=== PATIENT | female | born 1955 | race Caucasian/White ===

== ENCOUNTER 2017-01-27 04:38 | Inpatient (IN) | payer OTHER ==
[~2017-01-27] VITALS: Ht 170.2 cm; Wt 92.0 kg
[~2017-01-27 04:38] MED LIST: ASPIR 8181 M1 PO; ATENOLOL-CHLOR1 EAC1 PO; BUTALB-APAP-CA1 EACH PO; K-DUR20 MEQ PO; LISINOPRIL10 MG PO; MELOXICAM7.5 MG PO; PAXIL20 MG PO; RELPAX40 MG PO; SIMVASTATIN40 MG PO
[2017-01-27 06:12] LABS: CHLORIDE 100 mEq/L (99-109); POTASSIUM 2.8 mEq/L (3.7-5.4); SODIUM 138 mEq/L (136-147)
[2017-01-27 06:14] LABS: GLUCOSE 185 mg/dL (70-99)
[2017-01-27 06:15] LABS: ANION GAP 14 MEQ/L (2-14)
[2017-01-27 06:18] LABS: GFR ESTIMATE (CALCULATED) > 59 mL/min/
[2017-01-27 06:19] LABS: UREA NITROGEN (BUN) 20 mg/dL (9-23)
[2017-01-27 06:24] LABS: MCH 29.8 PG (29.0-34.0); MCHC 35.2 G/DL (30.0-36.0); MCV 84.6 FL (83-99); MEAN PLAT.VOLUME 9.1 uM^3 (9.5-12.4); PLATELET COUNT 247 K/uL (156-360); RBC DIS.WIDTH-CV 13.3 % (11.8-14.6); RBC DIS.WIDTH-SD 41.5 % (39-53); RED BLOOD COUNT 3.19 M/uL (3.80-5.20); WHITE BLOOD COUNT 11.2 K/uL (4.1-10.2)
[2017-01-27 06:26] LABS: TROP-I INTERPRETATION NEGATIVE; TROPONIN-I 0.03 ng/mL (0.0-0.30)
[2017-01-27 06:57] LABS: INTER. NORMALIZED RATIO 1.1; PROTHROMBIN TIME 12.2 SEC (10.2-12.9)
[2017-01-27 07:00] LABS: PTT 26.1 SEC (25-37)
[2017-01-27 11:16] LABS: HEMATOCRIT 23.4 % (36.0-46.0); MCV 85.1 FL (83-99)
[2017-01-27 11:53] LABS: TROP-I INTERPRETATION NEGATIVE; TROPONIN-I 0.15 ng/mL (0.0-0.30)
[2017-01-27 12:16] VITALS: BP 99/58
[2017-01-27 16:48] VITALS: BP 113/66
[2017-01-27 16:53] LABS: HEMATOCRIT 24.6 % (36.0-46.0); MCV 85.7 FL (83-99)
[2017-01-27 17:18] LABS: TROP-I INTERPRETATION NEGATIVE; TROPONIN-I 0.13 ng/mL (0.0-0.30)
[2017-01-27 20:07] VITALS: BP 145/80
[2017-01-27 21:13] LABS: ANION GAP 9 MEQ/L (2-14); CHLORIDE 105 MEQ/L (99-109); POTASSIUM 3.3 MEQ/L (3.7-5.4); SAMPLE HEMOLYSIS CHECK 0; SAMPLE ICTERIC CHECK 0; SAMPLE LIPEMIA CHECK 0; SODIUM 141 MEQ/L (136-147)
[2017-01-27 21:18] LABS: GFR ESTIMATE (CALCULATED) > 59 mL/min/; UREA NITROGEN (BUN) 14 mg/dL (9-23)
[2017-01-27 21:28] LABS: ADD MIUA? NO; BILIRUBIN NEGATIVE; BLOOD NEGATIVE; COLOR STRAW ((YELLOW)); GLUCOSE (STRIP) NEGATIVE; KETONES NEGATIVE; LEUKOCYTES NEGATIVE; NITRITE NEGATIVE; PROTEIN (STRIP) NEGATIVE; SPECIFIC GRAVITY 1.004 (1.000-1.030); UROBILINOGEN 0.2 MG/DL (0.2-1.0)
[2017-01-27 21:31] LABS: GLUCOSE 106 mg/dL (70-99)
[2017-01-27 23:35] LABS: HEMATOCRIT 21.5 % (36.0-46.0); MCV 85.3 FL (83-99)
[2017-01-27 23:46] VITALS: BP 119/61
[2017-01-28] VITALS (10 sets, daily range): BP systolic 106–142; BP diastolic 57–88
[2017-01-28 06:09] LABS: HEMATOCRIT 22.9 % (36.0-46.0); MCH 30.1 PG (29.0-34.0); MCHC 35.4 G/DL (30.0-36.0); MCV 85.1 FL (83-99); RBC DIS.WIDTH-CV 14.6 % (11.8-14.6); RBC DIS.WIDTH-SD 44.4 % (39-53); RED BLOOD COUNT 2.69 M/uL (3.80-5.20); WHITE BLOOD COUNT 7.1 K/uL (4.1-10.2)
[2017-01-28 06:20] LABS: ANION GAP 10 MEQ/L (2-14); CHLORIDE 106 MEQ/L (99-109); GFR ESTIMATE (CALCULATED) > 59 mL/min/; GLUCOSE 122 mg/dL (70-99); POTASSIUM 3.5 MEQ/L (3.7-5.4); SAMPLE HEMOLYSIS CHECK 0; SAMPLE ICTERIC CHECK 0; SAMPLE LIPEMIA CHECK 0; SODIUM 141 MEQ/L (136-147); UREA NITROGEN (BUN) 9 mg/dL (9-23)
[2017-01-28 06:55] LABS: MEAN PLAT.VOLUME 8.8 uM^3 (9.5-12.4); PLAT.SUFFICIENCY ADEQUATE
[2017-01-28 07:06] LABS: PLATELET COUNT 165 K/uL (156-360)
[2017-01-29 03:57] VITALS: BP 123/71
[2017-01-29 08:14] VITALS: BP 140/83
[2017-01-29] MEDS ORDERED: LIPITOR40 MG PO (08:36)
[2017-01-29] MEDS ORDERED: IMITREX100 MG PO (08:43)
[2017-01-29 09:24] LABS: HEMATOCRIT 24.4 % (36.0-46.0); MCH 29.6 PG (29.0-34.0); MCHC 34.8 G/DL (30.0-36.0); MEAN PLAT.VOLUME 8.7 uM^3 (9.5-12.4); PLATELET COUNT 178 K/uL (156-360); RBC DIS.WIDTH-CV 15.1 % (11.8-14.6); RED BLOOD COUNT 2.87 M/uL (3.80-5.20); WHITE BLOOD COUNT 7.6 K/uL (4.1-10.2)
[2017-01-29 09:51] LABS: ANION GAP 8 MEQ/L (2-14); CHLORIDE 103 MEQ/L (99-109); GFR ESTIMATE (CALCULATED) > 59 mL/min/; GLUCOSE 147 mg/dL (70-99); POTASSIUM 3.9 MEQ/L (3.7-5.4); SAMPLE HEMOLYSIS CHECK 0; SAMPLE ICTERIC CHECK 0; SAMPLE LIPEMIA CHECK 0; SODIUM 139 MEQ/L (136-147); UREA NITROGEN (BUN) 5 mg/dL (9-23)
[2017-01-29] MEDS ORDERED: ZOCOR40 MG PO (10:34)
[2017-01-29] MEDS ORDERED: VITAMIN D34000 UNIT PO (10:50)
[2017-01-29 11:41] VITALS: BP 103/58
[2017-01-29 15:45] VITALS: BP 115/59
[2017-01-29 19:55] VITALS: BP 139/68
[2017-01-29 23:09] VITALS: BP 122/69
[2017-01-30 07:28] LABS: HEMATOCRIT 26.5 % (36.0-46.0); MCH 29.1 PG (29.0-34.0); MCHC 34.3 G/DL (30.0-36.0); MCV 84.7 FL (83-99); MEAN PLAT.VOLUME 8.7 uM^3 (9.5-12.4); PLATELET COUNT 202 K/uL (156-360); RBC DIS.WIDTH-SD 44.9 % (39-53); RED BLOOD COUNT 3.13 M/uL (3.80-5.20); WHITE BLOOD COUNT 8.4 K/uL (4.1-10.2)
[2017-01-30 07:55] VITALS: BP 144/72
[2017-01-30 08:07] LABS: ANION GAP 11 MEQ/L (2-14); CHLORIDE 104 MEQ/L (99-109); GFR ESTIMATE (CALCULATED) > 59 mL/min/; GLUCOSE 130 mg/dL (70-99); POTASSIUM 3.5 MEQ/L (3.7-5.4); SAMPLE HEMOLYSIS CHECK 0; SAMPLE ICTERIC CHECK 0; SAMPLE LIPEMIA CHECK 0; SODIUM 143 MEQ/L (136-147); UREA NITROGEN (BUN) 7 mg/dL (9-23)
[2017-01-30 13:48] VITALS: BP 128/69
[2017-01-30 15:37] VITALS: BP 144/72
[2017-01-30 23:19] VITALS: BP 113/57
[2017-01-31 05:57] LABS: HEMATOCRIT 24.7 % (36.0-46.0); MCH 28.6 PG (29.0-34.0); MCHC 33.6 G/DL (30.0-36.0); MCV 85.2 FL (83-99); MEAN PLAT.VOLUME 8.3 uM^3 (9.5-12.4); PLATELET COUNT 173 K/uL (156-360); RBC DIS.WIDTH-CV 14.9 % (11.8-14.6); RBC DIS.WIDTH-SD 45.7 % (39-53); WHITE BLOOD COUNT 7.5 K/uL (4.1-10.2)
[2017-01-31 07:37] VITALS: BP 112/51
[2017-01-31] MEDS ORDERED: PROTONIX40 MG PO (09:33)
[2017-01-31] MEDS ORDERED: ANUCORT-HC25 MG PR (13:02)
[2017-01-31] MEDS ORDERED: FLEXERIL5 MG PO (13:04)
== END 2017-01-31 15:08 | disposition home or self-care (01) | DRG 378 ==
LOC: EME → EDBD 04:38 → EME 04:38 → 5SOUTH 07:43 → EDOF 07:43 → ENRESERV 07:54 → 5SOUTH 09:28 → ENPENDDIS 01-31 → 5SOUTH 01-31 15:08
PROVIDERS: Emergency Medicine; Internal Medicine; Internal Medicine Gastroenterology
PROC: 0DB68ZX Excision of Stomach, Via Natural or Artificial Opening Endoscopic, Diagnostic (ICD-10-PCS; principal; 2017-01-27)
PROC: 30233N1 Transfusion of Nonautologous Red Blood Cells into Peripheral Vein, Percutaneous Approach (ICD-10-PCS; 2017-01-28)
PROC: 0DBN8ZX Excision of Sigmoid Colon, Via Natural or Artificial Opening Endoscopic, Diagnostic (ICD-10-PCS; 2017-01-30)
DX: K92.2 Gastrointestinal hemorrhage, unspecified (principal); I24.8 Other forms of acute ischemic heart disease; I95.9 Hypotension, unspecified; D62 Acute posthemorrhagic anemia; R55 Syncope and collapse; I10 Essential (primary) hypertension; E78.5 Hyperlipidemia, unspecified; E87.6 Hypokalemia; I73.9 Peripheral vascular disease, unspecified; G89.29 Other chronic pain; M54.9 Dorsalgia, unspecified; D72.829 Elevated white blood cell count, unspecified; Z87.11 Personal history of peptic ulcer disease; M75.30 Calcific tendinitis of unspecified shoulder; R01.1 Cardiac murmur, unspecified; E86.1 Hypovolemia; K29.70 Gastritis, unspecified, without bleeding; B96.81 Helicobacter pylori [H. pylori] as the cause of diseases classified elsewhere; K25.9 Gastric ulcer, unspecified as acute or chronic, without hemorrhage or perforation; K64.8 Other hemorrhoids; D12.5 Benign neoplasm of sigmoid colon; Z86.010 Personal history of colon polyps; K31.7 Polyp of stomach and duodenum; K57.30 Diverticulosis of large intestine without perforation or abscess without bleeding; Z79.82 Long term (current) use of aspirin; Z79.899 Other long term (current) drug therapy
CPT/HCPCS: 71010; 73030; 80048; 80048 91; 80069; 81003; 84132 91; 84484; 85014; 85018; 85027; 85610; 85730; 86900; 86901; 86920; 88305; 88342 TC; 93005; 99281; 99285; C9113; J3480; J7030; P9016